=== PATIENT | male | born 2000 | race Hispanic/Latino ===

== ENCOUNTER 2024-10-06 11:50 | Emergency (ER) | payer OTHER ==
[~2024-10-06] VITALS: Ht 177.8 cm; Wt 104.3 kg
[2024-10-06 11:54] VITALS: BP 163/98; PULSE 108; RESP 22; TEMP 97.6; O2SAT 97
[2024-10-06 12:09] VITALS: BP 163/98; PULSE 108; RESP 22; TEMP 97.6; O2SAT 97
[2024-10-06] MEDS ORDERED: TORADOL ONE (12:31)
[2024-10-06] MEDS ORDERED: [UNRECOGNIZED DRUG - CODE] PO (12:36)
[2024-10-06 12:37] VITALS: BP 175/82; PULSE 97; RESP 22; TEMP 97.6; O2SAT 98
[2024-10-06] MEDS: TORADOL IM STA (12:37)
== END 2024-10-06 12:55 | disposition home or self-care (01) ==
LOC: ER 11:50
DX: S93.492A Sprain of other ligament of left ankle, initial encounter (principal); W19.XXXA Unspecified fall, initial encounter; Y93.89 Activity, other specified; Y92.89 Other specified places as the place of occurrence of the external cause; Y99.8 Other external cause status
CPT/HCPCS: 99284; 96372; 73610; J1885